=== PATIENT | male | born 1985 | race American Indian/Alaskan Native ===

== ENCOUNTER 2020-06-27 17:37 | Emergency (ER) | payer OTHER ==
--- NOTE | 2020-06-27 18:32 | XRay Report ---
LEFT LOWER LEG 4 VIEWS INDICATION / CLINICAL INFORMATION: trauma. COMPARISON: None available. FINDINGS: No fracture or other significant abnormality. Signer Name: De Suazo MD Signed: 06/27/2020 6:27 PM Workstation Name: [email or web address]
[2020-06-27 18:41] VITALS: BP 133/89
[2020-06-27] MEDS ORDERED: IBUPROFEN 600 MG TAB PO ONE (18:51)
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
== END 2020-06-27 19:30 | disposition home or self-care (01) ==
LOC: ED 17:37
DX: S89.92XA Unspecified injury of left lower leg, initial encounter (principal); F17.200 Nicotine dependence, unspecified, uncomplicated; Z79.1 Long term (current) use of non-steroidal anti-inflammatories (NSAID); Z79.899 Other long term (current) drug therapy; V49.69XA Unspecified car occupant injured in collision with other motor vehicles in traffic accident, initial encounter; Y93.89 Activity, other specified; Y92.410 Unspecified street and highway as the place of occurrence of the external cause; Y99.8 Other external cause status